=== PATIENT | male | born 1980 | race Caucasian/White ===

== ENCOUNTER 2019-06-21 18:12 | Emergency (ER) | payer OTHER, SELFPAY ==
--- NOTE | ~2019-06-21 | XR_ITS ---
EXAMINATION: XR finger 5th LT min 2V EXAM DATE: 06/21/2019 20:32 INDICATION: Initial encounter following injury, with pain of the left fifth finger. TECHNIQUE: Left fifth finger frontal, lateral and oblique projections obtained and reviewed. There is no prior study for comparison. FINDINGS: There are no acute fractures or dislocations identified. There is no subcutaneous gas. So ft tissue injury identified along the volar aspect of the distal phalanx. There are no radiopaque fo reign bodies. IMPRESSION: Left fifth finger soft tissue injury. Reviewed, dictated and finalized at location A.
[2019-06-21 19:30] VITALS: BP 141/88; PULSE 80; RESP 14; TEMP 36.4; O2SAT 99
--- NOTE | 2019-06-21 20:16 | ED.WOUNDLAC ---
HPI - Wound/Laceration General Chief Complaint: Wound/Laceration Stated Complaint: smashed finger Time Seen by Provider: 06/21/19 20:16 Source: patient Mode of arrival: ambulatory Limitations: no limitations History of Present Illness HPI narrative: 38-year-old man comes in today complaining of a wound to his left distal 5th digit that occurred this morning. Patient states that the heavy AC unit shift and smashed his finger. He states his tetanus is up-to-date (less than 5 years ago). Onset (ago): hour(s) (8) Extremity Location: Left: hand ( Pinky finger) Place: work Patient tetanus UTD: Yes Context: accidental and crush injury Associated symptoms: pain Treatments prior to arrival: bandage Related Data Home Medications Medication Instructions Recorded Confirmed No Home Medications 06/21/19 06/21/19 Allergies Allergy/AdvReac Type Severity Reaction Status Date / Time No Known Allergies Allergy Verified 06/21/19 19:29 Review of Systems Constitutional: Constitutional: Denies chills, Denies fever(s) and Denies weakness Eyes: Eyes: Denies photophobia ENT: Denies dysphagia, Denies nasal congestion and Denies sore throat Cardiovascular: Cardiovascular: Denies chest pain and Denies radiating jaw, neck or arm pain Respiratory: Respiratory: Denies cough, Denies dyspnea and Denies wheezing Gastrointestinal: Gastrointestinal: Denies abdominal pain, Denies diarrhea and Denies vomiting Genitourinary: Genitourinary: Denies dysuria and Denies urinary frequency Musculoskeletal: Musculoskeletal: Denies back pain, Denies arthralgias, Denies joint swelling and Denies muscle cramps Integumentary/Breasts: Skin/Breast: Denies pruritus, Denies erythema and Denies rash Neurologic: Denies vertigo, Denies dizziness and Denies syncope Hematologic/Lymphatic: Hematologic/Lymphatic: Denies easy bleeding and Denies easy bruising Allergic/Immunologic: Allergic/Immunologic: Denies lip swelling and Denies wheezing PMFSH Surgical History Surgical History (Updated 06/21/19 @ 21:20 by Rangel Garrido MD) Subclavian artery thrombosis Social History Social History (Updated 06/21/19 @ 21:20 by Rangel Garrido MD) Smoking status: Never smoker Alcohol intake: unknown Substance use: never Living arrangements: with family Occupation/Education: occupation 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 There is a 8 mm longitudinal laceration on the pad of the left 5th digit. Neuro: General: patient oriented x3, moves all extremities, no focal motor deficits and CN's II-XI intact bilaterally Extrem: General: normal to inspection and no clubbing, cyanosis or edema Psych: Appearance: grossly normal and well kempt Mental Status: mental status grossly normal Affect: normal affect Attitude: cooperative Thought content: Yes Normal thought content present Course Vital Signs Vital signs: Vital Signs Temperature 36.4 C L 06/21/19 19:30 Pulse Rate 80 06/21/19 19:30 Respiratory Rate 14 06/21/19 19:30 Blood Pressure 141/88 H 06/21/19 19:30 Pulse Oximetry 99 06/21/19 19:30 Temperature 36.4 C L 06/21/19 19:30 Pulse Rate 80 06/21/19 19:30 Respiratory Rate 14 06/21/19 19:30 Blood Pressure 141/88 H 06/21/19 19:30 Pulse Oximetry 99 06/21/19 19:30 Procedures Laceration Laceration 1: Date: 06/21/19 Time: 21:05 Site: upper extremity Side (If applicable): left Size (cm): 0.8
[2019-06-21] MEDS: IBUPROFEN 600 MG TABLET PO (20:37)
[2019-06-21] MEDS: LIDOCAINE HCL 1% LOCAL INJ 20 ML VIAL 5 ML INFILTRATE (21:18)
--- NOTE | 2019-06-21 21:19 | PC.NURSE ---
VALERI AND GAUZE APPLIED AFTER SUTURE PLACEMENT PER ERP VERBAL ORDERS.
[2019-06-21 21:30] VITALS: RESP 15; O2SAT 100
== END 2019-06-21 21:31 | disposition home or self-care (01) ==
PROVIDERS: Emergency Provider Emergency Medicine
DX: S60.10XA Contusion of unspecified finger with damage to nail, initial encounter (principal); S61.317A Laceration without foreign body of left little finger with damage to nail, initial encounter; W22.8XXA Striking against or struck by other objects, initial encounter
CPT/HCPCS: 12001; 12002; 73140; 99282; 99283; A9270

== ENCOUNTER 2020-07-08 14:18 | Emergency (ER) | payer MEDICAID, SELFPAY ==
--- NOTE | ~2020-07-08 | XR_ITS ---
EXAMINATION: XR foot LT min 3V EXAM DATE: 07/08/2020 14:56 INDICATION: Pain From Walking, 5th Metatarsal Pain, No Injury. TECHNIQUE: Left foot dorsoplantar, lateral and oblique projections obtained and reviewed. There is n o prior study for comparison. FINDINGS: Left metatarsal bones unremarkable. 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 There are no acute fractures or dislocations identified. There is no subcutaneous gas. The soft tissue is unremarkable. There are no radiopaque foreign bodies. IMPRESSION: 1. XR foot LT min 3V exam without acute osseous findings. Reviewed, dictated and finalized at location A.
--- NOTE | ~2020-07-08 | XR_ITS ---
EXAMINATION: XR foot RT min 3V EXAM DATE: 07/08/2020 14:55 INDICATION: Pain From Walking, Wounds/Blister, Distal Metatarsal 2nd-4th. TECHNIQUE: Right foot dorsoplantar, lateral and oblique projections obtained and reviewed. There is no prior study for comparison. FINDINGS: Right metatarsal bones unremarkable. There are no acute fractures or dislocations identifi ed. There is no subcutaneous gas. The soft tissue is unremarkable. There are no radiopaque foreig n bodies. IMPRESSION: 1. XR foot RT min 3V exam without acute osseous findings. Reviewed, dictated and finalized at location A.
[2020-07-08 14:19] VITALS: BP 117/75; PULSE 115; RESP 18; TEMP 36.6; O2SAT 98
--- NOTE | 2020-07-08 14:36 | ED.LOWEXIN ---
HPI - Extremity Injury (Lower) General Chief Complaint: Extremity Injury, Lower Stated Complaint: foot pain Time Seen by Provider: 07/08/20 14:26 Source: patient Mode of arrival: ambulatory Limitations: no limitations History of Present Illness HPI Narrative: This is a 40 year old male that presents to the ER for bilateral feet pain. Reports he has been walking from [place] trying to get to where his and child are. He currently does not have a car. Reports he has developed blisters to the bottom of his feet which make it difficult to walk. Also reports generalized muscle soreness. Denies fever, chest pain, shortness of breath, abdominal pain or vomiting. Related Data Home Medications Medication Instructions Recorded Confirmed No Home Medications 06/21/19 07/08/20 Allergies Allergy/AdvReac Type Severity Reaction Status Date / Time No Known Allergies Allergy Verified 07/08/20 14:18 Review of Systems Review of Systems: Narrative: CONSTITUTIONAL: Denies fever CARDIOVASCULAR: Denies chest pain, or edema. RESPIRATORY: Denies dyspnea. GASTROINTESTINAL: Denies abdominal pain, nausea, vomiting SKIN: Denies rash MUSCULOSKELETAL: Reports myalgia. NEUROLOGIC: Denies numbness, or weakness. All systems reviewed & are unremarkable except as noted in HPI and below PMFSH Surgical History Surgical History (Updated 06/21/19 @ 21:20 by Rangel Garrido MD) Subclavian artery thrombosis Social History Social History (Updated 06/21/19 @ 21:20 by Rangel Garrido MD) Smoking status: Never smoker Alcohol intake: unknown Substance use: never Additional occupation/education comments: structural welder Gender identity (if verbalized by the patient): Male Exam Narrative: Exam Narrative: GENERAL: Well-appearing, well-nourished, and in no acute distress. HEAD: Normocephalic, atraumatic. EYES: EOMI. ENT: Mucous membranes moist. Oropharynx without tonsillar hypertrophy exudate or other lesions. CHEST: Clear to auscultation. No respiratory distress. No wheezes rales or rhonchi HEART: Regular rate and rhythm. No murmur heard. Normal peripheral pulses. ABDOMEN: Soft, nontender, nondistended, normal active bowel sounds. EXTREMITIES: Normal range of motion. No edema or erythema. Scattered blisters to the plantar surface of the feet, no surrounding erythema or abnormal drainage to suggest infection. Normal DP pulses. Normal sensation SKIN: Warm, dry, no rash. NEURO: No focal deficits. Alert and oriented x3. PSYCH: Normal mood and affect Course Vital Signs Vital signs: Vital Signs Temperature 97.8 F 07/08/20 14:19 Pulse Rate 115 H 07/08/20 14:19 Respiratory Rate 18 07/08/20 14:19 Blood Pressure 117/75 07/08/20 14:19 Pulse Oximetry 98 07/08/20 14:19 Temperature 97.8 F 07/08/20 14:19 Pulse Rate 115 H 07/08/20 14:19 Respiratory Rate 18 07/08/20 14:19 Blood Pressure 117/75 07/08/20 14:19 Pulse Oximetry 98 07/08/20 14:19 MDM - Extremity Injury (Lower) MDM Narrative Medical decision making narrative: Patient presents the emergency department for foot pain after walking long distance. He does have some blistering on the bottom of his feet, no signs for infection. He is afebrile and nontoxic-appearing. CBC and metabolic panel without concerning findings. CK is normal. Urine does show some mild dehydration. Patient hydrated with IV fluids while in the ED. Bilateral foot x-rays are without acute osseous abnormalities. Patient was updated on case findings. He is stable and felt appropriate for further outpatient evaluation. He was given warnings to return the ER Lab Data Attestation: I reviewed the patient's lab results. Result diagrams: 07/08/20 15:18 07/08/20 15:50 Labs: Lab Results 07/08/20 07/08/20 07/08/20 Range/Units 15:18 15:50 15:50 WBC 7.2 (4.5-10.0) K/mm3 RBC 4.52 L (4.6-6.20) M/mm3 Hgb 14.5 (14.0-18.0) g/dL Hct 43.2 (42.
[2020-07-08] MEDS: SODIUM CHLORIDE 0.9% IV 1,000 ML 999 ML IV CONT (15:16)
[2020-07-08 15:24] LABS: Basophils Percent Auto 0.4 % (0.2-1.2); Eosinophils Absolute Auto 0.1 K/mm3 (0-0.3); Eosinophils Percent Auto 0.8 % (0-4.4); Hematocrit 43.2 % (42.0-52.0); Hemoglobin 14.5 g/dL (14.0-18.0); Immature Granulocyte Absolute 0.01 K/mm3 (0.00-0.031); Immature Granulocyte Percent A 0.1 % (0-0.5); Lymphocytes Absolute Auto 1.44 K/mm3 (0.9-3.2); Lymphocytes Percent Auto 20.1 % (18.3-44.2); Mean Corpuscular HGB Conc 33.6 g/dl (32-36); Mean Corpuscular Hemoglobin 32.1 pg (26-34); Mean Corpuscular Volume 95.6 fl (80-100); Mean Platelet Volume 9.6 fl (7.4-10.4); Monocytes Absolute Auto 0.4 K/mm3 (0.1-0.6); Monocytes Percent Auto 5.8 % (2.6-8.5); Neutrophils Absolute Auto 5.2 K/mm3 (1.3-6.7); Neutrophils Percent Auto 72.8 % (45.5-73.1); Platelet Count Result 252 k/mm3 (150-375); Red Blood Count 4.52 M/mm3 (4.6-6.20); Red Cell Distribution Width 13.3 % (11.5-14.5); White Blood Count 7.2 K/mm3 (4.5-10.0)
[2020-07-08 15:59] LABS: Add Urine Microscopic? YES; Appearance Urine Cloudy (Clear); Bacteria Urine Trace /hpf; Bilirubin Urine Negative (Negative); Blood Urine Negative (Negative); Color Urine Yellow (Yellow); Glucose Urine UA Negative (Negative); Ketones Urine Trace mg/dL (Negative); Leukocyte Esterase Ur Negative LEU/UL (Negative); Mucus Urine Few /lpf; Nitrate Urine Negative (Negative); Protein Urine 2+ mg/dL (Negative); RBC Urine 0-2 /hpf (0-2); Specific Grav Ur 1.027 (1.001-1.035); WBC Urine 0-3 /hpf
[2020-07-08 16:11] LABS: Alanine Aminotransferase 17 U/L (4-50); Albumin Level 3.6 g/dL (3.5-5.1); Alkaline Phosphatase 40 U/L (38-126); Anion Gap 1 mmol/L (8-16); Aspartate Amino Transferase 27 U/L (17-59); Bilirubin,Total 1.4 mg/dL (0.2-1.3); Blood Urea Nitrogen 14 mg/dL (9-20); CRP < 0.5 mg/dL (<1.0); Calcium 8.5 mg/dL (8.4-10.2); Carbon Dioxide 33 mmol/L (22-30); Chloride 105 mmol/L (98-107); Creatine Kinase 119 U/L (55-170); Estimated CRCL calculation 116 ml/min; Estimated Glomerular Filt Rate > 60; Glucose 113 mg/dL (75-110); Potassium 3.9 mmol/L (3.4-5.0); Sodium 139 mmol/L (137-145)
[2020-07-08] MEDS: KETOROLAC 30 MG/ML VIAL (*BKC) IV PUSH (17:19)
[2020-07-08 17:49] VITALS: BP 109/67; PULSE 84; O2SAT 96
== END 2020-07-08 17:49 | disposition home or self-care (01) ==
PROVIDERS: Physician Assistant; Emergency Provider Emergency Medicine
DX: R23.8 Other skin changes (principal); S90.822A Blister (nonthermal), left foot, initial encounter; S90.821A Blister (nonthermal), right foot, initial encounter; X58.XXXA Exposure to other specified factors, initial encounter; Y93.01 Activity, walking, marching and hiking
CPT/HCPCS: 36415; 73630; 80053; 81001; 82550; 85025; 86140; 96361; 96374; 99284; J1885; J7030